=== PATIENT | male | born 1970 | race Caucasian/White ===

== ENCOUNTER 2019-03-26 07:50 | Emergency (ER) | payer BC, SELFPAY ==
[2019-03-26 07:51] VITALS: BP 189/109; PULSE 100; RESP 18; TEMP 36.6; O2SAT 96; BMI 38.0
--- NOTE | 2019-03-26 08:34 | RAD_ITS ---
STUDY: X-RAY CHEST REASON FOR EXAM: Male, 48 years old. Coughing up blood for a week. TECHNIQUE: PA and lateral views. COMPARISON: None. FINDINGS: The lungs are clear and expanded. There is no demonstrated pleural abnormality. Normal size heart. Normal mediastinum and lobo. Normal visualized pulmonary arteries. Normal visualized aortic arch and descending thoracic aorta. Multiple contiguous compression fractures involving T7 down to T11 vertebral bodies are presumably from remote injury. Normal visualized ribs, clavicles, and shoulders. There is no demonstrated abnormality of the visualized soft tissue structures of the upper abdomen. RAD/Chest PA and Lateral IMPRESSION: 1. Normal x-ray examination of the chest. 2. Multiple mild anterior wedge compression fractures involving T7 down to T11 vertebral bodies are presumably from remote injury. Electronically Signed: Facundo Gregg MD at 9:02 EST , Service support ,
[2019-03-26 08:59] VITALS: BP 149/98
--- NOTE | 2019-03-26 09:19 | ED.VIS.GEN ---
History of Present Illness Chief Complaint: Cold Sx Onset: Today Context: Sudden Onset Narrative: Patient is a 48-year-old male with history of hypertension, hyperlipidemia and acid reflux presenting with an episode of hemoptysis. Patient states this morning he was clearing his throat and he coughed up a clot of blood. It was about the size of a nickel. He denies any other bleeding. He notes he did have a nosebleed about 1 week ago when he woke up and felt that there is blood dripping in the back of his throat. He states that resolved spontaneously. He denies any recent upper respiratory symptoms including nasal congestion or ear pain. He states he does have a sore throat. He is on any blood thinners. He denies any trauma. He was concerned that this could be something worse so he came to the emergency room to be evaluated further. He denies any other complaints at this time. Past Medical History - Allergies and Home Meds Allergies/Adverse Reactions: Allergies No Known Allergies Allergy (Verified 03/26/19 07:52) Primary Care Physician: Brijesh Yeager III, MD [Primary Care Provider] - Past Medical History: - - Hypertension, hyperlipidemia, GERD Surgical History: noncontributory Lives: With Family Smoking Status: Former smoker Review of Systems General: Denies: Chills, Fever, Sweats Eyes: Denies: Visual changes - bilaterally, Diplopia ENT: Reports: Sore throat. Denies: Rhinorrhea Cardiovascular: Denies: Chest pain, Palpitations Respiratory: Reports: Cough, Sputum - Bloody. Denies: Dyspnea, Dyspnea on exertion Gastrointestinal: Denies: Abdominal pain, Nausea, Vomiting, Diarrhea, Melena, Hematochezia Genitourinary: Denies: Dysuria, Hematuria, Frequency Musculoskeletal: Denies: Back pain, Extremity Pain Skin: Denies: Rash, Wounds Neurological: Denies: Headache, Weakness, Numbness Physical Exam Vital Signs/Narrative: Vital Signs Temp Pulse Resp BP Pulse Ox 03/26/19 08:59 149/98 H 03/26/19 07:51 98 F 100 18 189/109 H 96 General: Well nourished, Well developed, No Acute Distress Head: Normocephalic, Atraumatic Eyes: Perrl, EOMI ENT: Moist mucous membranes, No rhinorrhea, TM's clear, - - No blood in nares or signs of epistaxis, normal oropharynx with no signs of bleeding Neck: Supple, Nontender Cardiovascular: Regular rate, Regular rhythm, No murmurs Respiratory: No distress, CTA bilaterally, Chest nontender Abdomen: Soft, Nontender, Nondistended, Normal bowel sounds Back: Nontender, Normal Inspection Extremities: Nontender, No edema Skin: Normal color, No rash. Negative for: Pallor Neurological: Alert, Oriented x3, Cranial nerves II-XII grossly intact, Normal Strength, Normal Sensation Psychological: Normal affect, Normal Mood Diagnostic/Tx/Re-eval Chest X-Ray - ED: 2 View, Read by ED Physician, Read by Radiologist, No Acute Disease Clinical Impression(s) from Imaging Studies Chest X-Ray 03/26/19 08:34 IMPRESSION: 1. Normal x-ray examination of the chest. 2. Multiple mild anterior wedge compression fractures involving T7 down to T11 vertebral bodies are presumably from remote injury. Electronically Signed: Facundo Gregg MD at 9:02 EST , Service support , - Medical Decision Making Patient had one episode of hemoptysis. Patient brought in the clot for me to review. It is about the size of a nickel and is very dark and looks like old blood. It is possible that he was coughing of blood from his nosebleed last week. Lung sounds are clear. Patient does not have any rash or petechial lesions. He does not appear anemic. He has normal vital signs. Chest x-ray obtained which does not show any effusion or abnormal mass. Patient does have a remote compression fractures. Patient is stable for outpatient follow-up in my opinion. Patient is counseled that I cannot rule out every cause of hemoptysis but he is stable. He is encouraged to follow-up with his primary care doctor. Patient is PERC negative and I do not suspect PE as a cause. Patient is counseled on signs and symptoms requiring return to the emergency room. Patient verbalizes agreement and understand this plan. Patient discharged home in stable and improved condition. ED Disposition - Plan for ED Patient: Disposition: Home or Assisted Living Diagnosis: Hemoptysis Instructions: Hemoptysis Referrals: Brijesh Yeager III, MD [Primary Care Provider] - Additional Instructions: It is not entirely clear why you coughed up some blood today. I do think you are safe to follow-up with your primary care doctor. Return to emergency room if you have worsening symptoms.
== END 2019-03-26 09:37 | disposition home or self-care (01) ==
PROVIDERS: Emergency Provider Emergency Medicine; Family Provider Family Medicine; PCP Family Medicine
DX: R04.2 Hemoptysis (principal); I10 Essential (primary) hypertension; E78.5 Hyperlipidemia, unspecified; K21.9 Gastro-esophageal reflux disease without esophagitis; Z87.891 Personal history of nicotine dependence; Z79.899 Other long term (current) drug therapy
CPT/HCPCS: 71046; 99282

== ENCOUNTER 2020-11-10 08:38 | Inpatient (IN) | payer BC, SELFPAY ==
[2020-11-10] VITALS (12 sets, daily range): BP systolic 128–161; BP diastolic 75–96; PULSE 83–109; RESP 16–25; TEMP 36.4–37.6; O2SAT 85–94; BMI 36.5; BMI 34.7
--- NOTE | 2020-11-10 09:00 | EKG12_ITS ---
Test Reason : COVID Blood Pressure : / mmHG Vent. Rate : 094 BPM Atrial Rate : 094 BPM P-R Int : 138 ms QRS Dur : 078 ms QT Int : 342 ms P-R-T Axes : 026 -20 017 degrees QTc Int : 427 ms Normal sinus rhythm Minimal voltage criteria for LVH, may be normal variant Borderline ECG Confirmed by TRISTAN JACOBSON, JONNY ([id number]), book editor MARTHA MORTON ([id number]) on 11/12/2020 9:43:38 AM Referred By: BANDAR Confirmed By:JONNY HUDSON MD
--- NOTE | 2020-11-10 09:01 | RAD_ITS ---
STUDY: X-RAY CHEST REASON FOR EXAM: Male, 50 years old. cough TECHNIQUE: 2 portable views COMPARISON: 2018 FINDINGS: The lungs are underexpanded with superimposed interstitial and airspace opacifications without effusions. This pattern of opacification is most consistent with Covid pneumonia, though pneumonitis or CHF could have a similar appearance. There is no demonstrated pleural abnormality. Normal size heart. Normal mediastinum and lobo. Normal visualized pulmonary arteries. Normal visualized aortic arch and descending thoracic aorta. There are diffuse degenerative changes of the visualized thoracic spine. Normal visualized ribs, clavicles, and shoulders. There is no demonstrated abnormality of the visualized soft tissue structures of the upper abdomen. RAD/Chest 1 View (Portable) IMPRESSION: Underexpanded lungs with superimposed airspace and interstitial opacifications. Differential as described above. Follow-up recommended to ensure resolution Electronically Signed: Milton Shaver MD at 9:53 EDT , Service support ,
--- NOTE | 2020-11-10 09:02 | EDS_ITS ---
HPI History of Present Illness Chief Complaint: Cough Informant: patient Onset/Context/Timing Onset: Days Context: Gradual Onset Current Severity: Moderate Maximum Severity: Moderate Narrative Narrative: Patient present secondary to cough and increasing shortness of breath. Patient developed URI symptoms 1 week ago today. Last November 04 he tested positive for Covid. Patient reports increasing cough and shortness of breath. He has had fever at home. He denies vomiting or diarrhea. He did not receive the Covid vaccine. [facility] Medical History Arthritis Former smoker GERD (gastroesophageal reflux disease) High cholesterol Hypertension Home Medications ezetimibe [Zetia] 10 mg PO DAILY 04/11/14 [History Last Taken Unknown] omeprazole 40 mg PO DAILY 04/11/14 [History Last Taken Unknown] atorvastatin 20 mg PO QHS 03/26/19 [History Last Taken Unknown] cholecalciferol (vitamin D3) 1,000 unit PO DAILY 03/26/19 [History Last Taken Unknown] multivitamin 1 tab PO DAILY 11/10/20 [History Last Taken Unknown] Allergy/AdvReac Type Severity Reaction Status Date / Time No Known Allergies Allergy Verified 11/10/20 08:39 Surgical History Hx of arthroscopic knee surgery Social History Smoking Status: Former smoker ROS ROS ED Constitutional Constitutional ED: Denies chills or fever(s) Eyes Eyes: Denies change in vision ENT ENT ED: Denies sore throat Cardiovascular Cardiovascular: Denies chest pain Respiratory/Chest Respiratory/Chest: Reports cough and dyspnea Gastrointestinal Gastrointestinal: Denies abdominal pain, diarrhea, nausea or vomiting Genitourinary Genitourinary ED: Denies dysuria Musculoskeletal Musculoskeletal: Denies back pain Integumentary Denies rash Neurologic Neurologic: Denies headache(s) or weakness Psychiatric Psychiatric: Denies anxiety or depression Endocrine Endocrinology: Denies polydipsia or polyuria Allergic/Immunologic Allergic/Immunologic ED: Denies urticaria EXAM Physical Exam Const Vital Signs: 11/10/20 08:39 11/10/20 08:54 11/10/20 09:41 Temperature 97.6 F L Temperature Source Temporal Pulse Rate 109 H 95 Respiratory Rate 20 H 25 H Respiratory Effort Normal Non-Labored Respiratory Depth Normal Respiratory Pattern Normal Blood Pressure 148/94 H 161/95 H Blood Pressure Mean 112 117 Pulse Ox 91 92 Oxygen Delivery Method Room Air Room Air Nasal Cannula Oxygen Flow Rate (L/min) 2 11/10/20 10:39 11/10/20 10:43 Temperature 98.6 F 98.6 F Temperature Source Oral Oral Pulse Rate 93 Respiratory Rate 16 Respiratory Effort Respiratory Depth Respiratory Pattern Blood Pressure 128/84 H Blood Pressure Mean 98 Pulse Ox 93 Oxygen Delivery Method Nasal Cannula Oxygen Flow Rate (L/min) 2 Positive well nourished and well developed General Appearance ED: well developed HEENT Reports normocephalic and head/scalp atraumatic Eyes PERRL and EOMs intact bilaterally Neck supple Chest Wall inspection of chest normal and palpation of chest normal Resp normal respiratory effort and clear to auscultation bilaterally Cardio regular rate and regular rhythm GI normal to inspection, nondistended, normoactive bowel sounds Palpation: soft Extremity normal to inspection Neuro oriented x3 and no sensory deficits noted Sensorium / Orientation: alert Psych mental status grossly normal Skin no rashes or lesions noted MDM MDM MDM Narrative Medical decision making narrative: When I entered the room to see the patient his O2 sat was 85% on room air. He was placed on 2 L nasal cannula. Labs, EKG, chest x-ray obtained. Lab Data Attestation: I reviewed the patient's lab results. Labs: Laboratory Results - last 24 hr 11/10/20 11/10/20 11/10/20 09:30 09:30 09:30 WBC 7.8 RBC 4.88 Hgb 14.6 Hct 42.9 MCV 87.9 MCH 29.9 MCHC 34.0 RDW Std Deviation 43.4 RDW Coeff of Brenda 13.3 Plt Count 193 MPV 10.1 Immature Gran % (Auto) 0.800 Neut % (Auto) 84.6 H Lymph % (Auto) 10.5 L [place] % (Auto) 3.9 Eos % (Auto) 0.1 Baso % (Auto) 0.1 Absolute Neuts (auto) 6.6 Absolute Lymphs (auto) 0.82 L Nucleated RBC % 0 D-Dimer Quant (PE/DVT) 0.79 H* Sodium Potassium Chloride Carbon Dioxide Anion Gap BUN Creatinine Estim Creat Clear Calc Est GFR (MDRD) Af Amer Est GFR (MDRD) Non-Af BUN/Creatinine Ratio Glucose Lactic Acid Calcium Total Bilirubin AST ALT Alkaline Phosphatase Total Protein Albumin Globulin Albumin/Globulin Ratio Procalcitonin 0.28 H 11/10/20 11/10/20 09:30 09:30 WBC RBC Hgb Hct MCV MCH MCHC RDW Std Deviation RDW Coeff of Brenda Plt Count MPV Immature Gran % (Auto) Neut % (Auto) Lymph % (Auto) [place] % (Auto) Eos % (Auto) Baso % (Auto) Absolute Neuts (auto) Absolute Lymphs (auto) Nucleated RBC % D-Dimer Quant (PE/DVT) Sodium 138 Potassium 3.7 Chloride 106 Carbon Dioxide 25.0 Anion Gap 7 BUN 15 Creatinine 0.85 Estim Creat Clear Calc 100.59 Est GFR (MDRD) Af Amer 122 Est GFR (MDRD) Non-Af 101 BUN/Creatinine Ratio 17.6 Glucose 156 H Lactic Acid 1.2 Calcium 9.0 Total Bilirubin 0.60 AST 74 H ALT 67 H Alkaline Phosphatase 63 Total Protein 6.9 Albumin 3.1 L Globulin 3.8 Albumin/Globulin Ratio 0.8 L Procalcitonin Radiography Chest X-Ray - ED: 1 View, Read by ED Physician, Right Infiltrate and Left Infiltrate Diagnostic Testing: Radiology Impression Chest X-Ray 11/10/20 09:01 IMPRESSION: Underexpanded lungs with superimposed airspace and interstitial opacifications. Differential as described above. Follow-up recommended to ensure resolution Electronically Signed: Milton Shaver MD at 9:53 EDT , Service support , Chest CTA 11/10/20 10:05 IMPRESSION: No demonstrated PE, or thoracic aortic aneurysm or dissection Chronic bronchitis noted along with diffuse interstitial and airspace opacifications in both lung mesa without effusions. This pattern of opacification is most consistent with Covid. No suspicious adenopathy Degenerative bony changes Fatty liver Electronically Signed: Milton Shaver MD at 10:58 EDT , Service support , EKG Initial EKG: Attestation: I personally reviewed and interpreted this EKG as follows: Interpretation: Sinus Rhythm (Sinus at [address] change.) Treatment and Re-Evaluation Comments:: Patient's labs are reviewed. Procalcitonin is slightly elevated. Chest x-ray reveals bilateral infiltrates. D-dimer is elevated. CTA reveals infiltrates consistent with Covid pneumonia but no evidence of PE. On repeat evaluation patient is resting comfortably. He is currently on 2.5 L nasal cannula with sats in the low 90s. He did receive Decadron. I will speak with hospitalist regarding admission. Discharge Plan Triage Chief Complaint: Cough ED Provider: Jacinta Guzman Dx/Rx/DC Orders Clinical Impression: Pneumonia due to COVID-19 virus Prescriptions: No Action omeprazole 40 MG capsule,delayed release(DR/EC) 40 mg PO DAILY RF: 0 ezetimibe [Zetia] 10 MG tablet 10 mg PO DAILY RF: 0 atorvastatin 20 MG tablet 20 mg PO QHS RF: 0 cholecalciferol (vitamin D3) 1,000 UNIT tablet 1,000 unit PO DAILY RF: 0 multivitamin Tablet 1 tab PO DAILY RF: 0 Primary Care Provider: Care Physician,No Primary Referrals: Care Physician,No Primary [Primary Care Provider] - Disposition Disposition: Acute Care Hospital [facility]
[2020-11-10] MEDS: dexAMETHasone 4 MG Tablet 6 MG PO (09:16)
[2020-11-10 09:49] LABS: Absolute Lymphocyte Count 0.82 X10^3/uL (0.83-4.51); Absolute Neutrophil Count 6.6 X10^3/uL (2.0-7.7); Basophil# 0.01 X10^3/uL; Basophil% 0.1 % (0-1); Eosinophil# 0.01 X10^3/uL; Eosinophils% 0.1 % (0-5); Hematocrit 42.9 % (40-54); Hemoglobin 14.6 g/dL (13.0-16.5); Lymphocyte # 0.82 X10^3/ul (0.83-4.51); Lymphocyte % 10.5 % (19-41); Mean Corpuscular Hgb 29.9 pg (27.0-32.0); Mean Corpuscular Volume 87.9 fL (80-94); Mean Platelet Vol. 10.1 fl (6.2-12.0); Monocyte% 3.9 % (0-10); NRBC Flagged by Analyzer 0 % (0-5); Neutrophil # 6.59 X10^3/uL (2.7-7.7); Neutrophil % 84.6 % (47-70); Platelet Count 193 K/mm3 (150-450); RBC Distribution Width CV 13.3 % (11.6-14.6); RBC Distribution Width SD 43.4 fl (35.1-43.9); Red Blood Count 4.88 M/mm3 (4.6-6.2); White Blood Count 7.8 K/mm3 (4.4-11.0)
[2020-11-10 09:59] LABS: D-Dimer Quantitative (DVT/PE) 0.79 FEU/ug/m (0.27-0.49)
--- NOTE | 2020-11-10 10:05 | CT_ITS ---
STUDY: CTA CHEST REASON FOR EXAM: Male, 50 years old. SOB, covid RADIATION DOSAGE (If Supplied By Facility): CTDIvol = ( 12.66 ) mGy, DLP = ( 513.73 ) mGycm TECHNIQUE: The examination was performed with the intravenous administration of IV 100mL Isovue-370. Post-processing of the angiographic images was performed, with multiplanar reformation and 3D reconstruction. Individualized dose optimization techniques were used for this CT. COMPARISON: None. FINDINGS: Normal enhancement of the main pulmonary artery and right and left pulmonary arteries. Normal enhancement of the bilateral peripheral pulmonary arteries. There is no demonstrated pulmonary embolism. Normal thoracic aorta and visualized great vessels. There is no demonstrated aortic dissection. Normal heart and pericardium. Normal mediastinum. Normal hilar regions. There is peribronchial thickening. The lungs are well expanded. Diffuse interstitial and airspace opacifications probably in the periphery of both lung mesa without effusions. This pattern of opacification is most consistent with Covid. Normal pleura. Normal chest wall structures. There are degenerative changes of thoracic spine. Limited cuts through the upper abdomen show fatty infiltration of the liver without a discrete lesion CT/CTA Chest W/WO Contrast IMPRESSION: No demonstrated PE, or thoracic aortic aneurysm or dissection Chronic bronchitis noted along with diffuse interstitial and airspace opacifications in both lung mesa without effusions. This pattern of opacification is most consistent with Covid. No suspicious adenopathy Degenerative bony changes Fatty liver Electronically Signed: Milton Shaver MD at 10:58 EDT , Service support ,
[2020-11-10 10:10] LABS: ALB/GLOB Ratio 0.8 RATIO (0.9-2.4); AST(SGOT) 74 U/L (15-37); Alanine Aminotransfer ALT/SGPT 67 U/L (16-61); Albumin, Serum 3.1 g/dL (3.2-5.0); Alkaline Phosphatase 63 U/L (45-117); Anion Gap 7 (5-15); BUN 15 mg/dL (7-18); BUN/Creat Ratio 17.6 RATIO (10-20); Chloride 106 mmol/L (98-107); Creatinine, Serum 0.85 mg/dL (0.70-1.30); EST Glomerular Filtration Rate 101 mL/min (>60); Est Glom Filt Rate - Afr Amer 122 mL/min (>60); Estimated Creatinine Clearance 100.59 ml/min; Globulin 3.8 g/dL (2.2-4.2); Glucose 156 mg/dL (74-106); Lactic Acid 1.2 mmol/L (0.4-1.9); Potassium 3.7 mmol/L (3.5-5.1); Protein, Total 6.9 g/dL (6.4-8.2); Sodium Level 138 mmol/L (136-145)
[2020-11-10 10:44] LABS: Procalcitonin 0.28 ng/mL (0.00-0.09)
--- NOTE | 2020-11-10 13:47 | PCM.HP.STD ---
HPI - General General Date of Admission: 11/10/20 HPI Narrative MACIE GRIJALVA, is a 50 M who presents to ER with cough and increasing shortness of breath on exertion for 3 days. Patient developed nonspecific symptoms of weakness, sore throat about 1 week ago. Patient had fever at home. Cough is getting more productive with yellow sputum. Denies nausea, vomiting, diarrhea. He did not had Covid vaccine. His 1 daughter also had his fourth. Patient tested positive of Covid on November 04. In ED, his pulse ox dropped to 85% on room air. In chest x-ray and then chest CT PA was done which did not show PE but diffuse interstitial area is opacification groundglass interstitial/viral pneumonia. D-dimer elevated. Try to 70 years mildly elevated. Procalcitonin 0.28. Patient quit about 20 years ago. Started smoking teenage more than a pack per day probably for 30 years [facility] Medical History Arthritis Former smoker GERD (gastroesophageal reflux disease) High cholesterol Hypertension Home Medications ezetimibe [Zetia] 10 mg PO DAILY 04/11/14 [History Last Taken Unknown] omeprazole 40 mg PO DAILY 04/11/14 [History Last Taken Unknown] atorvastatin 20 mg PO QHS 03/26/19 [History Last Taken Unknown] cholecalciferol (vitamin D3) 1,000 unit PO DAILY 03/26/19 [History Last Taken Unknown] multivitamin 1 tab PO DAILY 11/10/20 [History Last Taken Unknown] Allergy/AdvReac Type Severity Reaction Status Date / Time No Known Allergies Allergy Verified 11/10/20 08:39 Surgical History Hx of arthroscopic knee surgery Social History Smoking Status: Former smoker ROS ROS Narrative Constitutional: Reports fatigue and weakness HEENT: Reports systems reviewed and no addt'l complaints, except as documented Respiratory/Chest: Cough, shortness of breath on exertion. No chest pain. Gastrointestinal: Denies coffee ground emesis, hematemesis or vomiting. No loss of taste and smell. Genitourinary: Denies burning urination Musculoskeletal: Reports joint pain and limited range of motion Neurologic: Denies seizure-like activity skin: No ulcer. No rash Endocrinology: Reports systems reviewed and no addt'l complaints, except as documented Hematologic/Lymphatic: Reports systems reviewed and no addt'l complaints, except as documented Rest 12 ROS are negative except as mentioned in HPI Vital Signs Vital Signs Vital Signs: 11/10/20 08:39 11/10/20 08:54 11/10/20 09:41 Temperature 97.6 F L Temperature Source Temporal Pulse Rate 109 H 95 Respiratory Rate 20 H 25 H Respiratory Effort Normal Non-Labored Respiratory Depth Normal Respiratory Pattern Normal Blood Pressure 148/94 H 161/95 H Blood Pressure Mean 112 117 Pulse Ox 91 92 Oxygen Delivery Method Room Air Room Air Nasal Cannula Oxygen Flow Rate (L/min) 2 11/10/20 10:39 11/10/20 10:43 11/10/20 12:00 Temperature 98.6 F 98.6 F 99.1 F Temperature Source Oral Oral Temporal Pulse Rate 93 83 Respiratory Rate 16 19 H Respiratory Effort Respiratory Depth Respiratory Pattern Blood Pressure 128/84 H 140/96 H Blood Pressure Mean 98 110 Pulse Ox 93 93 Oxygen Delivery Method Nasal Cannula Nasal Cannula Oxygen Flow Rate (L/min) 2 2 Weight Weight: 240 lb Body Mass Index (BMI) 36.5 Physical Exam Narrative General: Alert, Oriented x3, Cooperative. BMI 36.5 kg/m? HEENT: Atraumatic, PERRLA, EOMI, Normocephalic Oral: No Gingival or Mucosal Lesions/ Ulcerations Neck: Supple, No JVD, Negative Carotid Bruits Lungs: Air entry diminished in bilateral lung bases. No crepitation/rhonchi. On 2 L of oxygen. Cardiovascular: Regular rate, Regular Rhythm, Normal S1, Normal S2, No murmurs Abdomen: Bowel Sounds Present, Soft, Non Tender, Non-Distended : No renal angle tenderness. No suprapubic tenderness. Extremities: No edema, Capillary Refill Less than 3 Seconds Skin: No rashes, No breakdown Musculoskeletal: No Tenderness to Palpation of Joints or Extremities Neurological: Cranial nerves II-XII grossly intact, Deep Tendon Reflexes 2+/4 and Symmetrical, Neuro grossly intact Psych/Mental Status: Normal Affect, Appropriate. Results Lab / Micro Data Result Diagrams: 11/10/20 09:30 11/10/20 09:30 Labs: Laboratory Results - last 24 hr 11/10/20 09:30: D-Dimer Quant (PE/DVT) 0.79 H* 11/10/20 09:30: Procalcitonin 0.28 H 11/10/20 09:30: WBC 7.8, RBC 4.88, Hgb 14.6, Hct 42.9, MCV 87.9, MCH 29.9, MCHC 34.0, RDW Std Deviation 43.4, RDW Coeff of Brenda 13.3, Plt Count 193, MPV 10.1, Immature Gran % (Auto) 0.800, Neut % (Auto) 84.6 H, Lymph % (Auto) 10.5 L, [place] % (Auto) 3.9, Eos % (Auto) 0.1, Baso % (Auto) 0.1, Absolute Neuts (auto) 6.6, Absolute Lymphs (auto) 0.82 L, Nucleated RBC % 0 11/10/20 09:30: Sodium 138, Potassium 3.7, Chloride 106, Carbon Dioxide 25.0, Anion Gap 7, BUN 15, Creatinine 0.85, Estim Creat Clear Calc 100.59, Est GFR (MDRD) Af Amer 122, Est GFR (MDRD) Non-Af 101, BUN/Creatinine Ratio 17.6, Glucose 156 H, Calcium 9.0, Total Bilirubin 0.60, AST 74 H, ALT 67 H, Alkaline Phosphatase 63, Total Protein 6.9, Albumin 3.1 L, Globulin 3.8, Albumin/Globulin Ratio 0.8 L 11/10/20 09:30: Lactic Acid 1.2 Radiology Impression Chest X-Ray 11/10/20 09:01 IMPRESSION: Underexpanded lungs with superimposed airspace and interstitial opacifications. Differential as described above. Follow-up recommended to ensure resolution Electronically Signed: Milton Shaver MD at 9:53 EDT , Service support , Chest CTA 11/10/20 10:05 IMPRESSION: No demonstrated PE, or thoracic aortic aneurysm or dissection Chronic bronchitis noted along with diffuse interstitial and airspace opacifications in both lung mesa without effusions. This pattern of opacification is most consistent with Covid. No suspicious adenopathy Degenerative bony changes Fatty liver Electronically Signed: Milton Shaver MD at 10:58 EDT , Service support , Assessment & Plan Assessment/Plan (1) Pneumonia due to COVID-19 virus: PLAN: This 50-year-old patient will be admitted for bilateral COVID-19 pneumonia. 1. Acute bilateral COVID-19 pneumonia of moderate severity: Patient is being admitted in PCU on monitored bed. IV Decadron and remdesivir as per protocol. Incentive spirometry currently, Pep and mucolytic. Monitor pulse ox, and respiratory rate. 2. Acute hypoxic respiratory failure secondary to bilateral COVID-19 pneumonia: Oxygen support to keep pulse ox more than 90% 3. Pretension: Blood pressure is controlled. 4. Dyslipidemia: Home medication resumed 5. GERD: On PPI VTE prophylaxis: Lovenox 30 mg subcu twice daily. Discontinue if platelet count drops less than 50,000 or hemoglobin less than 8 g%. Living will/advanced directive/end of life care: Patient does not have living will or advanced directive. After discussion of benefits/risks procedures involved with full code, DNR CC arrest and DNR CC, the patient opted for full code and negative for intubation if needed. Patient does not artificial life support including intubation, tube feed, ventilator and/chest compression, central venous catheter, vasopressor and DC shock if needed Total time spent in [id number] encounter in discussion of advanced directive 16 minutes. Charges/Coding Visit Charges Inpatient E&M: 06565 Init Hosp L3 Procedures Hospitalists Procedures: 39875 Advncd Care Plan 30 Min
[2020-11-10 16:12] LABS: CPK Total, Creatine Kinase 718 U/L (39-308); LDH 614 U/L (87-241); Troponin-I HS 12.1 pg/mL (3.0-78.5)
[2020-11-10 16:17] LABS: BNP,B-Type NATRIURETIC PEPTIDE 5.7 pg/mL (0-100)
[2020-11-10 16:26] LABS: Fibrinogen 750 mg/dl (203-444)
[2020-11-10] MEDS: Enoxaparin 30 MG/0.3 ML Syringe SC ×2 (18:19→20:33)
[2020-11-10] MEDS: 0.9% Saline Lock 10 ML Syringe IV (18:25)
[2020-11-10] MEDS: Atorvastatin Calcium 20 MG Tablet PO (20:33)
[2020-11-11 03:17] VITALS: BP 130/88; PULSE 85; RESP 18; TEMP 37.3; O2SAT 91
[2020-11-11 05:15] VITALS: BP 128/80; PULSE 84; RESP 18; TEMP 37; O2SAT 92
[2020-11-11 06:25] LABS: Absolute Lymphocyte Count 0.99 X10^3/uL (0.83-4.51); Absolute Neutrophil Count 5.4 X10^3/uL (2.0-7.7); Basophil# 0.03 X10^3/uL; Basophil% 0.4 % (0-1); Hemoglobin 14.7 g/dL (13.0-16.5); Lymphocyte # 0.99 X10^3/ul (0.83-4.51); Lymphocyte % 13.9 % (19-41); Mean Corp Hgb Conc 34.2 g/dL (32-36); Mean Corpuscular Hgb 30.2 pg (27.0-32.0); Mean Corpuscular Volume 88.5 fL (80-94); Mean Platelet Vol. 9.9 fl (6.2-12.0); Monocyte# 0.59 X10^3/uL; Monocyte% 8.3 % (0-10); NRBC Flagged by Analyzer 0 % (0-5); Neutrophil # 5.41 X10^3/uL (2.7-7.7); Neutrophil % 75.7 % (47-70); Platelet Count 250 K/mm3 (150-450); RBC Distribution Width CV 13.2 % (11.6-14.6); Red Blood Count 4.86 M/mm3 (4.6-6.2); White Blood Count 7.1 K/mm3 (4.4-11.0)
[2020-11-11 06:54] LABS: Magnesium 2.2 mg/dL (1.6-2.6)
[2020-11-11 10:00] VITALS: BP 159/103; PULSE 87; RESP 18; TEMP 36.8; O2SAT 92
[2020-11-11] MEDS: Enoxaparin 30 MG/0.3 ML Syringe SC ×2 (10:29→21:21)
[2020-11-11] MEDS: Ezetimibe 10 MG Tablet PO (10:30)
[2020-11-11] MEDS: Pantoprazole Sodium 40 MG Tablet PO (10:30)
[2020-11-11] MEDS: dexAMETHasone 10 MG/ML Vial 6 MG IV (10:30)
[2020-11-11] MEDS: Cholecalciferol (VIT D3) 25 MCG TABLET (1,000 UNITS) PO (10:30)
[2020-11-11] MEDS: Multivitamins,Therapeutic Tablet 1 TABLET PO (10:30)
--- NOTE | 2020-11-11 10:52 | PCM.PN.HOSP ---
Subjective Subjective Patient is a 50-year-old gentleman unvaccinated for COVID-19 presented to the emergency department with progressive shortness of breath. He had apparently been diagnosed with Covid 6 days prior to his admission. Imaging studies obtained on admission demonstrated Chronic bronchitis noted along with diffuse interstitial and airspaceopacifications in both lung mesa without effusions consistent with Covid. Objective Data Objective Data Vital Signs: Vital Signs Temp Pulse Resp BP Pulse Ox 98.3 F 87 18 159/103 H 92 11/11/20 10:00 11/11/20 10:00 11/11/20 10:00 11/11/20 10:00 11/11/20 05:15 Oxygen Flow Rate (L/min) 5 Oxygen Delivery Method Nasal Cannula Weight: 103.419 kg Body Mass Index (BMI) 34.7 Intake & Output: Intake and Output for Last 24 Hours 11/09/20 11/10/20 11/11/20 23:59 23:59 23:59 Intake Total 920 / 1160 480 / 480 Balance 920 / 1160 480 / 480 Lab / Micro Data Result Diagrams: 11/11/20 05:53 11/10/20 09:30 Labs: Laboratory Results - last 24 hr 11/10/20 14:17: B-Natriuretic Peptide 5.7 11/10/20 15:49: PT 13.0, INR 1.0, Fibrinogen 750 H 11/10/20 15:49: Lactate Dehydrogenase 614 H, Total Creatine Kinase 718 H, Troponin I High Sens 12.1, C-React Prot Ext Range 153.00 H 11/11/20 05:53: WBC 7.1, RBC 4.86, Hgb 14.7, Hct 43.0, MCV 88.5, MCH 30.2, MCHC 34.2, RDW Std Deviation 43.0, RDW Coeff of Brenda 13.2, Plt Count 250, MPV 9.9, Immature Gran % (Auto) 1.700 H, Neut % (Auto) 75.7 H, Lymph % (Auto) 13.9 L, [place] % (Auto) 8.3, Eos % (Auto) 0.0, Baso % (Auto) 0.4, Absolute Neuts (auto) 5.4, Absolute Lymphs (auto) 0.99, Nucleated RBC % 0 11/11/20 05:53: Magnesium 2.2 Micro: Microbiology 11/10/20 21:32 Sputum, Expectorated/Coughed Gram Stain - Final 11/10/20 21:32 Sputum, Expectorated/Coughed Respiratory Culture - Preliminary Appears to be normal respiratory citlali. Further studies to follow. 11/10/20 15:50 Urine, Clean Catch Legionella Antigen - Final 11/10/20 15:50 Urine, Clean Catch Streptococcus pneumoniae Antigen (M - Final Radiography Diagnostic Testing: Radiology Impression Chest CTA 11/10/20 10:05 IMPRESSION: No demonstrated PE, or thoracic aortic aneurysm or dissection Chronic bronchitis noted along with diffuse interstitial and airspace opacifications in both lung mesa without effusions. This pattern of opacification is most consistent with Covid. No suspicious adenopathy Degenerative bony changes Fatty liver Electronically Signed: Milton Shaver MD at 10:58 EDT , Service support , Physical Exam Narrative GENERAL: Somewhat dyspneic at rest HEENT: Atraumatic; EYES; Anicteric, Normal Conjunctiva NECK; supple, normal thyroid, RESPIRATORY: Diminished to auscultation CARDIOVASCULAR: Regular S1 S2, GI: soft, normoactive bowel sounds, : No Renal angle tenderness; EXTREMITIES: No edema, no clubbing, MUSCULOSKELETAL: no muscle waisting NEURO: Awake; no lateralizing signs. SKIN: No Rash PSYCH; Flat affect Assessment & Plan Assessment/Plan (1) Pneumonia due to COVID-19 virus: PLAN: Patient is a 50-year-old gentleman unvaccinated for COVID-19 presented to the emergency department with progressive shortness of breath. He had apparently been diagnosed with Covid 6 days prior to his admission. Imaging studies obtained on admission demonstrated Chronic bronchitis noted along with diffuse interstitial and airspaceopacifications in both lung mesa without effusions consistent with Covid. 1. Acute hypoxic respiratory failure ?Secondary to SARS-CoV-2 pneumonia. Imaging studies obtained on admission demonstrated Chronic bronchitis noted along with diffuse interstitial and airspace opacifications in both lung mesa without effusions consistent with Covid. Admitted to a monitored bed managed with incentive spirometry, supplemental oxygen, placed on Decadron remdesivir. Patient seen remains significantly dyspneic at rest on supplemental oxygen 2. GERD ?Patient is on PPI 3. Gout ?Patient is on allopurinol 4. Dyslipidemia -Patient is on statin therapy, continued at home dose 5. Obesity with BMI of 34.7 ?Weight loss advised 6. DVT prophylaxis ?Enoxaparin Charges/Coding Visit Charges Inpatient E&M: 16262 Subs Hosp L3
--- NOTE | 2020-11-11 13:15 | CASEMGMT ---
RN RICHARD assessment: Face to Face with patient using enhanced droplet precautions for initial transition planning/care coordination assessment. RN CM introduced self and role at [facility], pt voices understanding and consents to assessment. Pt is up pacing in room with c/o shortness of breath, states pushed nurse call button. Pt very anxious. This RN CM placed pulse ox on and pt's sats were 90-92% on 5L nc. Pt did calm down once sitting and Jadiel LOPEZ notified as soon as this RN CM left room and Dr. España also into room as this RN CM exited. Pt sitting on side of bed during assessment. Pt is A/Ox4 and answers all questions appropriately. Care providers, pharmacy, and demographics verified. Presentation: Pt c/o cough/SOB and states tested positive for COVID last Wednesday-Pt states was tested at [facility] urgent care Admitting dx: COVID pna PCP: Pt states was with Dr. Yeager previously and has not seen a new physician at [facility] since he retired. Specialists: Pt states no current specialists. Preferred Pharmacy: [facility] Insurance: [employer] Prescription Benefit: [place] Living Will/HPOA: Pt states does not have LW/HPOA and declines AD info. LNOK: Shirley Serrano, adult daughter; Elizabeth Serrano, mother Living Arrangements: Pt states lives with daughter in home and states no concerns at home. Pt states is independent with ADL's. Pt states daughter was just tested for COVID but does not have result yet. Pt states no concerns with getting supplies once home. Transportation: Pt states drives self and states no transportation concerns. DME/HHC: Pt states does not have any current DME or need for any. Pt states no hx of HHC or SNF. Pt states no preference for DME company, if qualifies for home oxygen at discharge. Pt states no concerns with going home at time of discharge. 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 Pt states does not smoke cigarettes or drink ETOH. Pt states no further concerns/needs. CM to follow for home oxygen need or any further discharge planning/needs. Advised pt to ask for CM if any further questions/concerns/needs arise, voices understanding. Pt Goal: Home Plan: Home, pending home oxygen testing, clinical course. SStaten JESSICA RAMOS
--- NOTE | 2020-11-11 13:54 | PCM.CONS.GEN ---
Assessment & Plan Assessment/Plan (1) Pneumonia due to COVID-19 virus: PLAN: Sx started 11/02. Unvaccinated. On remdesivir, will order daily cmp/cbc. On dex, will change to po. Sputum with heavy purulence and GPC, will start ceftriaxone. On lovenox 30mg bid, CTA neg for PE. D-dimer mildly elevated. Recommend 10 days total dex. Quarantine days from onset of symptoms. Recommended covid vaccine once he is out of iso. Daughter also likely with covid, she is getting tested. Will follow, thank you (2) Hypoxia: HPI Consult Data Date of Consult: 11/11/20 HPI Narrative HPI Narrative: MACIE GRIJALVA, is a 50 M who presented with sx starting 11/02 with sore throat, congestion. Developed progressive cough, dysypnea, white/yellow sputum. No aches, no headache, no fatigue, no change in taste/smell, no n/v/d. Has not gotten covid vaccine. Tested (+) as an outpt for covid. Daughter this AM with loss of taste and smell. He was admitted, started on dex and remdesivir, feeling better today. Full ROS performed and neg except as noted above. [facility] Medical History Arthritis Former smoker GERD (gastroesophageal reflux disease) High cholesterol Hypertension Home Medications ezetimibe [Zetia] 10 mg PO DAILY 04/11/14 [History Last Taken 11/09/20] omeprazole 40 mg PO DAILY 04/11/14 [History Last Taken 11/09/20] atorvastatin 20 mg PO QHS 03/26/19 [History Last Taken 11/09/20] cholecalciferol (vitamin D3) 1,000 unit PO DAILY 03/26/19 [History Last Taken 11/09/20] allopurinol [Zyloprim] 100 mg PO DAILY 11/10/20 [History Last Taken 11/09/20] multivitamin 1 tab PO DAILY 11/10/20 [History Last Taken 11/09/20] Allergy/AdvReac Type Severity Reaction Status Date / Time No Known Allergies Allergy Verified 11/10/20 08:39 Surgical History Hx of arthroscopic knee surgery Social History Smoking Status: Former smoker Physical Exam Const alert and oriented x3 General Appearance: cooperative Exam Limitations: no limitations HEENT normocephalic and head/scalp atraumatic Eyes PERRL and EOMs intact bilaterally Neck supple and No nodes Resp Resp Narrative: diminished in bases Auscultation: diminished lung sounds Cardio regular rate and regular rhythm GI normal to inspection, nondistended, normoactive bowel sounds Extremity no clubbing, cyanosis or edema Skin no rashes or lesions noted Neuro CN's II-XII intact bilaterally Lab / Micro Data Result Diagrams: 11/11/20 05:53 11/10/20 09:30 Labs: Laboratory Results - last 24 hr 11/10/20 14:17: B-Natriuretic Peptide 5.7 11/10/20 15:49: PT 13.0, INR 1.0, Fibrinogen 750 H 11/10/20 15:49: Lactate Dehydrogenase 614 H, Total Creatine Kinase 718 H, Troponin I High Sens 12.1, C-React Prot Ext Range 153.00 H 11/11/20 05:53: WBC 7.1, RBC 4.86, Hgb 14.7, Hct 43.0, MCV 88.5, MCH 30.2, MCHC 34.2, RDW Std Deviation 43.0, RDW Coeff of Brenda 13.2, Plt Count 250, MPV 9.9, Immature Gran % (Auto) 1.700 H, Neut % (Auto) 75.7 H, Lymph % (Auto) 13.9 L, [place] % (Auto) 8.3, Eos % (Auto) 0.0, Baso % (Auto) 0.4, Absolute Neuts (auto) 5.4, Absolute Lymphs (auto) 0.99, Nucleated RBC % 0 11/11/20 05:53: Magnesium 2.2 Micro: Microbiology 11/10/20 21:32 Sputum, Expectorated/Coughed Gram Stain - Final 11/10/20 21:32 Sputum, Expectorated/Coughed Respiratory Culture - Preliminary Appears to be normal respiratory citlali. Further studies to follow. 11/10/20 15:50 Urine, Clean Catch Legionella Antigen - Final 11/10/20 15:50 Urine, Clean Catch Streptococcus pneumoniae Antigen (M - Final
[2020-11-11 16:00] VITALS: BP 127/80; PULSE 83; RESP 18; TEMP 36.4; O2SAT 95
[2020-11-11 17:50] VITALS: O2SAT 91
[2020-11-11] MEDS: Atorvastatin Calcium 20 MG Tablet PO (21:21)
[2020-11-11 21:28] VITALS: BP 137/82; PULSE 74; RESP 20; TEMP 36.6; O2SAT 93
[2020-11-12 02:45] VITALS: BP 137/87; PULSE 71; RESP 20; TEMP 36.7; O2SAT 92
[2020-11-12 06:25] LABS: Hematocrit 43.8 % (40-54); Hemoglobin 14.8 g/dL (13.0-16.5); Mean Corp Hgb Conc 33.8 g/dL (32-36); Mean Corpuscular Hgb 29.8 pg (27.0-32.0); Mean Corpuscular Volume 88.1 fL (80-94); Mean Platelet Vol. 9.5 fl (6.2-12.0); Platelet Count 319 K/mm3 (150-450); RBC Distribution Width CV 13.2 % (11.6-14.6); RBC Distribution Width SD 42.5 fl (35.1-43.9); Red Blood Count 4.97 M/mm3 (4.6-6.2); White Blood Count 9.1 K/mm3 (4.4-11.0)
[2020-11-12 06:57] LABS: ALB/GLOB Ratio 0.8 RATIO (0.9-2.4); AST(SGOT) 65 U/L (15-37); Alanine Aminotransfer ALT/SGPT 85 U/L (16-61); Albumin, Serum 2.9 g/dL (3.2-5.0); Alkaline Phosphatase 65 U/L (45-117); Anion Gap 5 (5-15); BUN 19 mg/dL (7-18); BUN/Creat Ratio 25.6 RATIO (10-20); Chloride 109 mmol/L (98-107); Creatinine, Serum 0.74 mg/dL (0.70-1.30); EST Glomerular Filtration Rate 118 mL/min (>60); Est Glom Filt Rate - Afr Amer 143 mL/min (>60); Estimated Creatinine Clearance 115.54 ml/min; Globulin 3.6 g/dL (2.2-4.2); Glucose 126 mg/dL (74-106); Potassium 4.2 mmol/L (3.5-5.1); Protein, Total 6.5 g/dL (6.4-8.2); Sodium Level 141 mmol/L (136-145)
[2020-11-12 07:20] VITALS: O2SAT 92
[2020-11-12 09:52] VITALS: BP 133/78; PULSE 81; RESP 20; TEMP 36.6; O2SAT 92
[2020-11-12] MEDS: Ezetimibe 10 MG Tablet PO (09:54)
[2020-11-12] MEDS: dexAMETHasone 4 MG Tablet 6 MG PO (09:54)
[2020-11-12] MEDS: Enoxaparin 30 MG/0.3 ML Syringe SC ×2 (09:54→22:34)
[2020-11-12] MEDS: Pantoprazole Sodium 40 MG Tablet PO (09:54)
[2020-11-12] MEDS: Multivitamins,Therapeutic Tablet 1 TABLET PO (09:54)
[2020-11-12] MEDS: 0.9% Saline Lock 10 ML Syringe IV ×2 (09:55→14:00)
[2020-11-12] MEDS: Cholecalciferol (VIT D3) 25 MCG TABLET (1,000 UNITS) PO (09:55)
--- NOTE | 2020-11-12 10:53 | PCM.PN.HOSP ---
Subjective Subjective Patient seen still requiring high flow oxygen currently on 6 L and saturating in the low 90s. Objective Data Objective Data Vital Signs: Vital Signs Temp Pulse Resp BP Pulse Ox 97.9 F 81 20 H 133/78 H 92 11/12/20 09:52 11/12/20 09:52 11/12/20 09:52 11/12/20 09:52 11/12/20 09:52 Oxygen Flow Rate (L/min) 6 Oxygen Delivery Method Nasal Cannula Weight: 103.4 kg Body Mass Index (BMI) 34.7 Intake & Output: Intake and Output for Last 24 Hours 11/10/20 11/11/20 11/12/20 23:59 23:59 23:59 Intake Total 920 / 1160 1180 / 1180 150 / 150 Balance 920 / 1160 1180 / 1180 150 / 150 Medical Nutrition Assessment Dietitian: Nutrition Therapy Diagnosis Start: 11/11/20 10:00 Freq: Status: Active Protocol: Document 11/11/20 15:04 RMA (Rec: 11/11/20 15:04 RMA [id number]) Nutrition Malnutrition Evidence of Malnutrition Exists Yes Malnutrition (severe): Acute Illness/Injury Evidenced By Suboptimal Energy Intake ( Severe),Weight Loss (Severe) Clinical Problem Acute Disease or Injury Related Malnutrition Etiology Severe protein-calorie malnutrition in the context of acute illness (Covid pneumonia) related to decreased/inadequate oral intake Signs/Symptoms as evidenced by ~5% wt loss x past 1-2 weeks, poor oral intake and PO meeting less than 50% estimated nutrition needs x past 1-2 weeks. Status Active Problem Recommendation Dietitian Recommendations/Changes Will continue Regular diet as ordered; monitor need to restrict carbs given glucose 156; Cardiac diet restrictions as needed once intake improved given past medical history. Will add 120ml vanilla ensure enlive BID w/ breakfast and dinner and 240ml van ensure enlive w/ lunch (700 calories and 40gm protein). Additional ONS if intake established inadequate at meals. Lab / Micro Data Result Diagrams: 11/12/20 06:15 11/12/20 06:15 Labs: Laboratory Results - last 24 hr 11/12/20 06:15: WBC 9.1, RBC 4.97, Hgb 14.8, Hct 43.8, MCV 88.1, MCH 29.8, MCHC 33.8, RDW Std Deviation 42.5, RDW Coeff of Brenda 13.2, Plt Count 319, MPV 9.5 11/12/20 06:15: Sodium 141, Potassium 4.2, Chloride 109 H, Carbon Dioxide 27.0, Anion Gap 5, BUN 19 H, Creatinine 0.74, Estim Creat Clear Calc 115.54, Est GFR (MDRD) Af Amer 143, Est GFR (MDRD) Non-Af 118, BUN/Creatinine Ratio 25.6 H, Glucose 126 H, Calcium 9.0, Total Bilirubin 0.70, AST 65 H, ALT 85 H, Alkaline Phosphatase 65, Total Protein 6.5, Albumin 2.9 L, Globulin 3.6, Albumin/Globulin Ratio 0.8 L Micro: Microbiology 11/10/20 09:30 Blood Culture (Wb) - Right Wrist Blood Culture - Preliminary No growth in 48 hours. 11/10/20 09:30 Blood Culture (Wb) - Left Hand Blood Culture - Preliminary No growth in 48 hours. 11/10/20 21:32 Sputum, Expectorated/Coughed Gram Stain - Final 11/10/20 21:32 Sputum, Expectorated/Coughed Respiratory Culture - Preliminary Appears to be normal respiratory citlali. Further studies to follow. 11/10/20 15:50 Urine, Clean Catch Legionella Antigen - Final 11/10/20 15:50 Urine, Clean Catch Streptococcus pneumoniae Antigen (M - Final Physical Exam Narrative GENERAL: Somewhat dyspneic at rest HEENT: Atraumatic; EYES; Anicteric, Normal Conjunctiva NECK; supple, normal thyroid, RESPIRATORY: Diminished to auscultation CARDIOVASCULAR: Regular S1 S2, GI: soft, normoactive bowel sounds, : No Renal angle tenderness; EXTREMITIES: No edema, no clubbing, MUSCULOSKELETAL: no muscle waisting NEURO: Awake; no lateralizing signs. SKIN: No Rash PSYCH; Flat affect Assessment & Plan Assessment/Plan (1) Pneumonia due to COVID-19 virus: PLAN: Patient is a 50-year-old gentleman unvaccinated for COVID-19 presented to the emergency department with progressive shortness of breath. He had apparently been diagnosed with Covid 6 days prior to his admission. Imaging studies obtained on admission demonstrated Chronic bronchitis noted along with diffuse interstitial and airspaceopacifications in both lung mesa without effusions consistent with Covid. 1. Acute hypoxic respiratory failure ?Secondary to SARS-CoV-2 pneumonia. Imaging studies obtained on admission demonstrated Chronic bronchitis noted along with diffuse interstitial and airspace opacifications in both lung mesa without effusions consistent with Covid. Admitted to a monitored bed managed with incentive spirometry, supplemental oxygen, placed on Decadron remdesivir. Patient seen remains significantly dyspneic at rest on supplemental oxygen -11/12/2020; Patient seen still requiring high flow oxygen currently on 6 L and saturating in the low 90s. 2. GERD ?Patient is on PPI 3. Gout ?Patient is on allopurinol 4. Dyslipidemia -Patient is on statin therapy, continued at home dose 5. Obesity with BMI of 34.7 ?Weight loss advised 6. DVT prophylaxis ?Enoxaparin Charges/Coding Visit Charges Inpatient E&M: 07155 Subs Hosp L2
[2020-11-12 14:02] VITALS: BP 138/76; PULSE 73; RESP 20; TEMP 36.8; O2SAT 92
[2020-11-12 18:45] VITALS: BP 118/75; PULSE 72; RESP 20; TEMP 36.8; O2SAT 96
[2020-11-12] MEDS: guaiFENesin/Codeine 5 ML UDC 10 ML PO (18:48)
[2020-11-12] MEDS: Hydrocortisone 25 MG Suppository RC (18:48)
[2020-11-12] MEDS: Atorvastatin Calcium 20 MG Tablet PO (22:34)
[2020-11-12 22:45] VITALS: BP 132/82; PULSE 74; RESP 18; TEMP 36.5; O2SAT 96
[2020-11-13] VITALS (7 sets, daily range): BP systolic 118–156; BP diastolic 56–92; PULSE 71–81; RESP 16–18; TEMP 36.2–36.8; O2SAT 92–94
[2020-11-13] MEDS: guaiFENesin/Codeine 5 ML UDC 10 ML PO (05:42)
[2020-11-13 06:48] LABS: Hematocrit 44.5 % (40-54); Hemoglobin 14.8 g/dL (13.0-16.5); Mean Corp Hgb Conc 33.3 g/dL (32-36); Mean Corpuscular Hgb 29.7 pg (27.0-32.0); Mean Corpuscular Volume 89.2 fL (80-94); Mean Platelet Vol. 9.2 fl (6.2-12.0); Platelet Count 369 K/mm3 (150-450); RBC Distribution Width SD 42.5 fl (35.1-43.9); Red Blood Count 4.99 M/mm3 (4.6-6.2); White Blood Count 11.9 K/mm3 (4.4-11.0)
[2020-11-13 07:16] LABS: ALB/GLOB Ratio 0.8 RATIO (0.9-2.4); AST(SGOT) 70 U/L (15-37); Alanine Aminotransfer ALT/SGPT 117 U/L (16-61); Albumin, Serum 2.9 g/dL (3.2-5.0); Alkaline Phosphatase 70 U/L (45-117); Anion Gap 6 (5-15); BUN 22 mg/dL (7-18); BUN/Creat Ratio 31.2 RATIO (10-20); Calcium,Total 8.8 mg/dL (8.5-10.1); Chloride 108 mmol/L (98-107); EST Glomerular Filtration Rate 126 mL/min (>60); Est Glom Filt Rate - Afr Amer 152 mL/min (>60); Estimated Creatinine Clearance 122.14 ml/min; Globulin 3.8 g/dL (2.2-4.2); Glucose 118 mg/dL (74-106); Potassium 4.2 mmol/L (3.5-5.1); Protein, Total 6.7 g/dL (6.4-8.2); Sodium Level 141 mmol/L (136-145)
--- NOTE | 2020-11-13 08:01 | PN.HOSP_ITS ---
Subjective Subjective Patient seen describe his condition is stable plan is to attempt to wean down his oxygen requirement Objective Data Objective Data Vital Signs: Vital Signs Temp Pulse Resp BP Pulse Ox 98.2 F 76 18 138/82 H 94 11/13/20 05:31 11/13/20 05:31 11/13/20 05:31 11/13/20 05:31 11/13/20 05:31 Oxygen Flow Rate (L/min) 4 Oxygen Delivery Method Nasal Cannula Weight: 103.4 kg Body Mass Index (BMI) 34.7 Intake & Output: Intake and Output for Last 24 Hours 11/11/20 11/12/20 11/13/20 23:59 23:59 23:59 Intake Total 1180 / 1180 880 / 880 Balance 1180 / 1180 880 / 880 Medical Nutrition Assessment Dietitian: Nutrition Therapy Diagnosis Start: 11/11/20 10:00 Freq: Status: Active Protocol: Document 11/11/20 15:04 RMA (Rec: 11/11/20 15:04 RMA [id number]) Nutrition Malnutrition Evidence of Malnutrition Exists Yes Malnutrition (severe): Acute Illness/Injury Evidenced By Suboptimal Energy Intake ( Severe),Weight Loss (Severe) Clinical Problem Acute Disease or Injury Related Malnutrition Etiology Severe protein-calorie malnutrition in the context of acute illness (Covid pneumonia) related to decreased/inadequate oral intake Signs/Symptoms as evidenced by ~5% wt loss x past 1-2 weeks, poor oral intake and PO meeting less than 50% estimated nutrition needs x past 1-2 weeks. Status Active Problem Recommendation Dietitian Recommendations/Changes Will continue Regular diet as ordered; monitor need to restrict carbs given glucose 156; Cardiac diet restrictions as needed once intake improved given past medical history. Will add 120ml vanilla ensure enlive BID w/ breakfast and dinner and 240ml van ensure enlive w/ lunch (700 calories and 40gm protein). Additional ONS if intake established inadequate at meals. Lab / Micro Data Result Diagrams: 11/13/20 06:35 11/13/20 06:35 Labs: Laboratory Results - last 24 hr 11/13/20 06:35: WBC 11.9 H, RBC 4.99, Hgb 14.8, Hct 44.5, MCV 89.2, MCH 29.7, MCHC 33.3, RDW Std Deviation 42.5, RDW Coeff of Brenda 13.0, Plt Count 369, MPV 9.2 11/13/20 06:35: Sodium 141, Potassium 4.2, Chloride 108 H, Carbon Dioxide 27.0, Anion Gap 6, BUN 22 H, Creatinine 0.70, Estim Creat Clear Calc 122.14, Est GFR (MDRD) Af Amer 152, Est GFR (MDRD) Non-Af 126, BUN/Creatinine Ratio 31.2 H, Glucose 118 H, Calcium 8.8, Total Bilirubin 0.70, AST 70 H, ALT 117 H, Alkaline Phosphatase 70, Total Protein 6.7, Albumin 2.9 L, Globulin 3.8, Albumin/Globulin Ratio 0.8 L Micro: Microbiology 11/10/20 09:30 Blood Culture (Wb) - Right Wrist Blood Culture - Preliminary No growth in 48 hours. 11/10/20 09:30 Blood Culture (Wb) - Left Hand Blood Culture - Preliminary No growth in 48 hours. 11/10/20 21:32 Sputum, Expectorated/Coughed Gram Stain - Final 11/10/20 21:32 Sputum, Expectorated/Coughed Respiratory Culture - Preliminary Appears to be normal respiratory citlali. Further studies to follow. 11/10/20 15:50 Urine, Clean Catch Legionella Antigen - Final 11/10/20 15:50 Urine, Clean Catch Streptococcus pneumoniae Antigen (M - Final Physical Exam Narrative GENERAL: Cooperative HEENT: Atraumatic; EYES; Anicteric, Normal Conjunctiva NECK; supple, normal thyroid, RESPIRATORY: Diminished to auscultation CARDIOVASCULAR: Regular S1 S2, GI: soft, normoactive bowel sounds, : No Renal angle tenderness; EXTREMITIES: No edema, no clubbing, MUSCULOSKELETAL: no muscle waisting NEURO: Awake; no lateralizing signs. SKIN: No Rash PSYCH; Flat affect Assessment & Plan Assessment/Plan (1) Pneumonia due to COVID-19 virus: PLAN: Patient is a 50-year-old gentleman unvaccinated for COVID-19 presented to the emergency department with progressive shortness of breath. He had apparently been diagnosed with Covid 6 days prior to his admission. Imaging studies obtained on admission demonstrated Chronic bronchitis noted along with diffuse interstitial and airspaceopacifications in both lung mesa without effusions consistent with Covid. 1. Acute hypoxic respiratory failure ?Secondary to SARS-CoV-2 pneumonia. Imaging studies obtained on admission demonstrated Chronic bronchitis noted along with diffuse interstitial and airspace opacifications in both lung mesa without effusions consistent with Covid. Admitted to a monitored bed managed with incentive spirometry, supplemental oxygen, placed on Decadron remdesivir. Patient seen remains significantly dyspneic at rest on supplemental oxygen -11/12/2020; Patient seen still requiring high flow oxygen currently on 6 L and saturating in the low 90s. -11/13/2020. Patient still remains somewhat dyspneic at rest. Plan is to att empt to wean down his oxygen requirement. 2. GERD ?Patient is on PPI 3. Gout ?Patient is on allopurinol 4. Dyslipidemia -Patient is on statin therapy, continued at home dose 5. Obesity with BMI of 34.7 ?Weight loss advised 6. DVT prophylaxis ?Enoxaparin Charges/Coding Visit Charges Inpatient E&M: 51382 Subs Hosp L2
[2020-11-13] MEDS: dexAMETHasone 4 MG Tablet 6 MG PO (09:38)
[2020-11-13] MEDS: Ezetimibe 10 MG Tablet PO (09:39)
[2020-11-13] MEDS: Enoxaparin 30 MG/0.3 ML Syringe SC ×2 (09:39→22:01)
[2020-11-13] MEDS: Pantoprazole Sodium 40 MG Tablet PO (09:39)
[2020-11-13] MEDS: Multivitamins,Therapeutic Tablet 1 TABLET PO (09:39)
[2020-11-13] MEDS: Cholecalciferol (VIT D3) 25 MCG TABLET (1,000 UNITS) PO (09:39)
[2020-11-13] MEDS: 0.9% Saline Lock 10 ML Syringe IV ×2 (09:41→22:04)
--- NOTE | 2020-11-13 14:40 | PN.ID_ITS ---
Physical Exam Narrative Feeling better, less sputum, no fever, no n/v/d. Const alert and no apparent distress General Appearance: cooperative Resp clear to auscultation bilaterally Auscultation: diminished lung sounds Cardio regular rate and regular rhythm GI normal to inspection, nondistended, normoactive bowel sounds Extremity no clubbing, cyanosis or edema Skin no rashes or lesions noted ID ID: Route of nutrition/ use of supplements: [] Nutritional Intake: [] IV Site: [] Krishna Catheter: [] Assessment & Plan Assessment/Plan (1) Pneumonia due to COVID-19 virus: PLAN: Sx started 11/02. Unvaccinated. On remdesivir and dex. Sputum with normal citlali, will stop ceftriaxone. On lovenox 30mg bid, CTA neg for PE. D- dimer mildly elevated. Recommend 10 days total dex. Quarantine 20 days from onset of symptoms. Recommended covid vaccine once he is out of iso. Ok for home from ID perspective depending on O2 reqs. Will follow as needed (2) Hypoxia:
[2020-11-13] MEDS: Atorvastatin Calcium 20 MG Tablet PO (22:01)
[2020-11-13] MEDS: MELATONIN 3 MG TABLET PO (22:43)
[2020-11-13] MEDS: Sodium Chloride 0.65% 1 SPRAY SPRAY.BTL 2 SPRAY NASAL (22:43)
[2020-11-14] VITALS (7 sets, daily range): BP systolic 123–129; BP diastolic 75–84; PULSE 67–82; RESP 18; TEMP 36.8; O2SAT 87–94
[2020-11-14 06:12] LABS: Hematocrit 42.5 % (40-54); Hemoglobin 14.3 g/dL (13.0-16.5); Mean Corp Hgb Conc 33.6 g/dL (32-36); Mean Corpuscular Hgb 29.8 pg (27.0-32.0); Mean Corpuscular Volume 88.5 fL (80-94); Mean Platelet Vol. 9.1 fl (6.2-12.0); Platelet Count 410 K/mm3 (150-450); RBC Distribution Width CV 12.9 % (11.6-14.6); RBC Distribution Width SD 42.1 fl (35.1-43.9); White Blood Count 11.3 K/mm3 (4.4-11.0)
[2020-11-14 06:48] LABS: ALB/GLOB Ratio 0.8 RATIO (0.9-2.4); AST(SGOT) 63 U/L (15-37); Alanine Aminotransfer ALT/SGPT 146 U/L (16-61); Albumin, Serum 2.8 g/dL (3.2-5.0); Alkaline Phosphatase 67 U/L (45-117); Anion Gap 3 (5-15); BUN 22 mg/dL (7-18); BUN/Creat Ratio 29.2 RATIO (10-20); Calcium,Total 8.8 mg/dL (8.5-10.1); Chloride 107 mmol/L (98-107); Creatinine, Serum 0.75 mg/dL (0.70-1.30); EST Glomerular Filtration Rate 116 mL/min (>60); Est Glom Filt Rate - Afr Amer 141 mL/min (>60); Globulin 3.6 g/dL (2.2-4.2); Glucose 141 mg/dL (74-106); Potassium 4.4 mmol/L (3.5-5.1); Protein, Total 6.4 g/dL (6.4-8.2); Sodium Level 138 mmol/L (136-145)
--- NOTE | 2020-11-14 07:30 | PCM.PN.HOSP ---
Subjective Subjective Patient seen oxygen requirement significantly down. Will assess patient for home oxygen. Objective Data Objective Data Vital Signs: Vital Signs Temp Pulse Resp BP Pulse Ox 98.2 F 67 18 129/84 H 93 11/14/20 02:21 11/14/20 02:21 11/14/20 02:21 11/14/20 02:21 11/14/20 02:21 Oxygen Flow Rate (L/min) 2 Oxygen Delivery Method Nasal Cannula Weight: 103.4 kg Body Mass Index (BMI) 34.7 Intake & Output: Intake and Output for Last 24 Hours 11/12/20 11/13/20 11/14/20 23:59 23:59 23:59 Intake Total 880 / 880 1160 / 1160 Balance 880 / 880 1160 / 1160 Medical Nutrition Assessment Dietitian: Nutrition Therapy Diagnosis Start: 11/11/20 10:00 Freq: Status: Active Protocol: Document 11/13/20 15:42 RMA (Rec: 11/13/20 15:42 RMA [id number]) Nutrition Malnutrition Evidence of Malnutrition Exists Yes Malnutrition (severe): Acute Illness/Injury Evidenced By Suboptimal Energy Intake ( Severe),Weight Loss (Severe) Clinical Problem Acute Disease or Injury Related Malnutrition Etiology Severe protein-calorie malnutrition in the context of acute illness (Covid pneumonia) related to decreased/inadequate oral intake Signs/Symptoms as evidenced by ~5% wt loss x past 1-2 weeks, poor oral intake and PO meeting less than 50% estimated nutrition needs x past 1-2 weeks. Status Active Problem Recommendation Dietitian Recommendations/Changes Will continue Regular diet and 120ml vanilla ensure enlive BID w/ breakfast and dinner and 240ml van ensure enlive w/ lunch (700 calories and 40gm protein). Cardiac diet as needed once intake is optimal. Additional ONS if PO regresses at meals. Lab / Micro Data Result Diagrams: 11/14/20 06:04 11/14/20 06:04 Labs: Laboratory Results - last 24 hr 11/14/20 06:04: WBC 11.3 H, RBC 4.80, Hgb 14.3, Hct 42.5, MCV 88.5, MCH 29.8, MCHC 33.6, RDW Std Deviation 42.1, RDW Coeff of Brenda 12.9, Plt Count 410, MPV 9.1 11/14/20 06:04: Sodium 138, Potassium 4.4, Chloride 107, Carbon Dioxide 28.0, Anion Gap 3 L, BUN 22 H, Creatinine 0.75, Estim Creat Clear Calc 114.00, Est GFR (MDRD) Af Amer 141, Est GFR (MDRD) Non-Af 116, BUN/Creatinine Ratio 29.2 H, Glucose 141 H, Calcium 8.8, Total Bilirubin 0.60, AST 63 H, ALT 146 H, Alkaline Phosphatase 67, Total Protein 6.4, Albumin 2.8 L, Globulin 3.6, Albumin/Globulin Ratio 0.8 L Micro: Microbiology 11/10/20 21:32 Sputum, Expectorated/Coughed Gram Stain - Final 11/10/20 21:32 Sputum, Expectorated/Coughed Respiratory Culture - Final 11/10/20 09:30 Blood Culture (Wb) - Right Wrist Blood Culture - Preliminary No growth in 48 hours. 11/10/20 09:30 Blood Culture (Wb) - Left Hand Blood Culture - Preliminary No growth in 48 hours. 11/10/20 15:50 Urine, Clean Catch Legionella Antigen - Final 11/10/20 15:50 Urine, Clean Catch Streptococcus pneumoniae Antigen (M - Final Physical Exam Narrative GENERAL: Cooperative HEENT: Atraumatic; EYES; Anicteric, Normal Conjunctiva NECK; supple, normal thyroid, RESPIRATORY: Diminished to auscultation CARDIOVASCULAR: Regular S1 S2, GI: soft, normoactive bowel sounds, : No Renal angle tenderness; EXTREMITIES: No edema, no clubbing, MUSCULOSKELETAL: no muscle waisting NEURO: Awake; no lateralizing signs. SKIN: No Rash PSYCH; Flat affect Assessment & Plan Assessment/Plan (1) Pneumonia due to COVID-19 virus: PLAN: Patient is a 50-year-old gentleman unvaccinated for COVID-19 presented to the emergency department with progressive shortness of breath. He had apparently been diagnosed with Covid 6 days prior to his admission. Imaging studies obtained on admission demonstrated Chronic bronchitis noted along with diffuse interstitial and airspaceopacifications in both lung mesa without effusions consistent with Covid. 1. Acute hypoxic respiratory failure ?Secondary to SARS-CoV-2 pneumonia. Imaging studies obtained on admission demonstrated Chronic bronchitis noted along with diffuse interstitial and airspace opacifications in both lung mesa without effusions consistent with Covid. Admitted to a monitored bed managed with incentive spirometry, supplemental oxygen, placed on Decadron remdesivir. Patient seen remains significantly dyspneic at rest on supplemental oxygen -11/12/2020; Patient seen still requiring high flow oxygen currently on 6 L and saturating in the low 90s. -11/13/2020. Patient still remains somewhat dyspneic at rest. Plan is to attempt to wean down his oxygen requirement. -11/14/2020 ; Patient seen oxygen requirement significantly down. Will assess patient for home oxygen in anticipation of a possible discharge 2. GERD ?Patient is on PPI 3. Gout ?Patient is on allopurinol 4. Dyslipidemia -Patient is on statin therapy, continued at home dose 5. Obesity with BMI of 34.7 ?Weight loss advised 6. DVT prophylaxis ?Enoxaparin
[2020-11-14] MEDS: Multivitamins,Therapeutic Tablet 1 TABLET PO (08:51)
[2020-11-14] MEDS: Pantoprazole Sodium 40 MG Tablet PO (08:51)
[2020-11-14] MEDS: dexAMETHasone 4 MG Tablet 6 MG PO (08:51)
[2020-11-14] MEDS: Enoxaparin 30 MG/0.3 ML Syringe SC (08:51)
[2020-11-14] MEDS: Cholecalciferol (VIT D3) 25 MCG TABLET (1,000 UNITS) PO (08:51)
[2020-11-14] MEDS: Ezetimibe 10 MG Tablet PO (08:51)
--- NOTE | 2020-11-14 10:59 | NURSING ---
pt sat up to edge of bed and on 2l at rest sating 93%. o2 off and up in room to ambulate. spo2 on ra dropped to 87%. o2 reapplied at 2l and unable to get above 88% when up walking continuous. o2 increased to 4l and still spo2 remains same. no sign of distress noted with exertion however. o2 on 6l and finally pt hovering in 89-90%. back to bed and within 5min of rest able to turn o2 back to baseline of 2l/nc now.
--- NOTE | 2020-11-14 11:24 | DS.PCM_ITS ---
Providers Date of Admission: 11/10/20 Primary Care Physician: No Primary Care Phys Consultations 11/10/20 14:17 Consult: Infectious Disease Routine Consulting Provider: Franko España Reason for Consult: Covid-19 PNEUMONIA EMERGENT Consult: No MD Notified: Yes Date Notified: 11/11/20 Time Notified: 06:40 Method of Notification: Text Reason For Visit: COVID PNEUMONIA Diagnosis Discharge Diagnosis (1) Pneumonia due to COVID-19 virus: Status: Acute Code(s): U07.1 - COVID-19; J12.82 - Pneumonia due to coronavirus disease 2019 Medications at Discharge Home Medications ezetimibe [Zetia] 10 mg PO DAILY 04/11/14 omeprazole 40 mg PO DAILY 04/11/14 atorvastatin 20 mg PO QHS 03/26/19 cholecalciferol (vitamin D3) 1,000 unit PO DAILY 03/26/19 allopurinol [Zyloprim] 100 mg PO DAILY 11/10/20 multivitamin 1 tab PO DAILY 11/10/20 codeine-guaifenesin [Guaiatussin AC] 10 ml PO Q6H PRN PRN 7 Days #473 ml 11/14/20 dexamethasone 6 mg PO DAILY 5 Days #8 tab 11/14/20 hydrocortisone acetate [Anucort-HC] 25 mg [place] TID PRN PRN #30 ea 11/14/20 sodium chloride [Deep Sea Nasal] 2 spray NASAL TID PRN PRN 7 Days #60 ml 11/14/20 Hospital Course Summary of Care Provided Minutes Spent on Discharge: 35 Hospital Course: Patient is a 50-year-old gentleman unvaccinated for COVID-19 presented to the emergency department with progressive shortness of breath. He had apparently been diagnosed with Covid 6 days prior to his admission. Imaging studies obtained on admission demonstrated Chronic bronchitis noted along with diffuse interstitial and airspace opacifications in both lung mesa without effusions consistent with Covid. 1. Acute hypoxic respiratory failure ?Secondary to SARS-CoV-2 pneumonia. Imaging studies obtained on admission demonstrated Chronic bronchitis noted along with diffuse interstitial and airspace opacifications in both lung mesa without effusions consistent with Covid. Admitted to a monitored bed managed with incentive spirometry, supplemental oxygen, placed on Decadron remdesivir. Patient seen remains significantly dyspneic at rest on supplemental oxygen -11/12/2020; Patient seen still requiring high flow oxygen currently on 6 L and saturating in the low 90s. -11/13/2020. Patient still remains somewhat dyspneic at rest. Plan is to attempt to wean down his oxygen requirement. -11/14/2020 ; Patient seen oxygen requirement significantly down. Patient was assessed for home oxygen prior to patient going home. Patient was given specific instructions on what to look out for and when to return to the hospital. He was instructed to current time for a total of 20 days beginning from the onset of his symptoms. Patient to follow-up with his primary care physician following his current time.. He was also instructed to arrange with PCP to be vaccinated against Covid 2. GERD ?Patient is on PPI 3. Gout ?Patient is on allopurinol 4. Dyslipidemia -Patient is on statin therapy, continued at home dose 5. Obesity with BMI of 34.7 ?Weight loss advised 6. DVT prophylaxis ?Enoxaparin Physical Exam Narrative GENERAL: Cooperative HEENT: Atraumatic; EYES; Anicteric, Normal Conjunctiva NECK; supple, normal thyroid, RESPIRATORY: Diminished to auscultation CARDIOVASCULAR: Regular S1 S2, GI: soft, normoactive bowel sounds, : No Renal angle tenderness; EXTREMITIES: No edema, no clubbing, MUSCULOSKELETAL: no muscle waisting NEURO: Awake; no lateralizing signs. SKIN: No Rash PSYCH; Flat affect Medical Records Data Medical Nutrition Assessment Dietitian: Nutrition Therapy Diagnosis Start: 11/11/20 10:00 Freq: Status: Active Protocol: Document 11/13/20 15:42 RMA (Rec: 11/13/20 15:42 RMA [id number]) Nutrition Malnutrition Evidence of Malnutrition Exists Yes Malnutrition (severe): Acute Illness/Injury Evidenced By Suboptimal Energy Intake ( Severe),Weight Loss (Severe) Clinical Problem Acute Disease or Injury Related Malnutrition Etiology Severe protein-calorie malnutrition in the context of acute illness (Covid pneumonia) related to decreased/inadequate oral intake Signs/Symptoms as evidenced by ~5% wt loss x past 1-2 weeks, poor oral intake and PO meeting less than 50% estimated nutrition needs x past 1-2 weeks. Status Active Problem Recommendation Dietitian Recommendations/Changes Will continue Regular diet and 120ml vanilla ensure enlive BID w/ breakfast and dinner and 240ml van ensure enlive w/ lunch (700 calories and 40gm protein). Cardiac diet as needed once intake is optimal. Additional ONS if PO regresses at meals. Weight / BMI Weight Weight: 103.4 kg Body Mass Index (BMI) 34.7 ABG / Lab / Microbiology Data Result Diagrams: 11/14/20 06:04 11/14/20 06:04 Laboratory: Laboratory Results - last 24 hr 11/14/20 06:04: WBC 11.3 H, RBC 4.80, Hgb 14.3, Hct 42.5, MCV 88.5, MCH 29.8, MCHC 33.6, RDW Std Deviation 42.1, RDW Coeff of Brenda 12.9, Plt Count 410, MPV 9.1 11/14/20 06:04: Sodium 138, Potassium 4.4, Chloride 107, Carbon Dioxide 28.0, Anion Gap 3 L, BUN 22 H, Creatinine 0.75, Estim Creat Clear Calc 114.00, Est GFR (MDRD) Af Amer 141, Est GFR (MDRD) Non-Af 116, BUN/Creatinine Ratio 29.2 H, Glucose 141 H, Calcium 8.8, Total Bilirubin 0.60, AST 63 H, ALT 146 H, Alkaline Phosphatase 67, Total Protein 6.4, Albumin 2.8 L, Globulin 3.6, Albumin/Globulin Ratio 0.8 L Microbiology: Microbiology 11/10/20 21:32 Sputum, Expectorated/Coughed Gram Stain - Final 11/10/20 21:32 Sputum, Expectorated/Coughed Respiratory Culture - Final 11/10/20 09:30 Blood Culture (Wb) - Right Wrist Blood Culture - Preliminary No growth in 48 hours. 11/10/20 09:30 Blood Culture (Wb) - Left Hand Blood Culture - Preliminary No growth in 48 hours. 11/10/20 15:50 Urine, Clean Catch Legionella Antigen - Final 11/10/20 15:50 Urine, Clean Catch Streptococcus pneumoniae Antigen (M - Final D/C Instructions Discharge Diet: No restrictions Discharge Activity: Return to Normal Activity Call your doctor if you observe: Fever of 101 or Higher, Shortness of breath, Fainting spells and Chest pain Meaningful Use Info Meaningful Use Diagnoses (Choose all that apply): None applicable Discharge Plan Admission Admit Date/Time: 11/10/20 14:15 Primary Reason for Your Visit: SARS-CoV-2 pneumonia Attending Provider: Nikko Saxena Primary Care Provider: Care Physician,No Primary Consulting Providers: Franko España Discharge Orders/Prescriptions Prescriptions: New dexamethasone 4 mg Tablet 6 mg PO DAILY 5 Days Qty: 8 RF: 0 codeine-guaifenesin [Guaiatussin AC] 10-100 mg/5 mL Liquid 10 ml PO Q6H PRN PRN (Reason: COUGH) 7 Days Qty: 473 RF: 0 hydrocortisone acetate [Anucort-HC] 25 mg Suppository 25 mg [place] TID PRN PRN (Reason: HEMORRHOIDS) Qty: 30 RF: 0 sodium chloride [Deep Sea Nasal] 0.65 % Aerosol,[place] 2 spray NASAL TID PRN PRN (Reason: NASAL DRYNESS) 7 Days Qty: 60 RF: 0 Continued omeprazole 40 MG capsule,delayed release(DR/EC) 40 mg PO DAILY RF: 0 ezetimibe [Zetia] 10 MG tablet 10 mg PO DAILY RF: 0 atorvastatin 20 MG tablet 20 mg PO QHS RF: 0 cholecalciferol (vitamin D3) 1,000 UNIT tablet 1,000 unit PO DAILY RF: 0 multivitamin Tablet 1 tab PO DAILY RF: 0 allopurinol [Zyloprim] 100 mg tablet 100 mg PO DAILY RF: 0 Referrals / Follow Up: Care Physician,No Primary [Primary Care Provider] - In 1 Week Disposition Disposition (needs filled in before D/C Order can be placed): Home, Self Care Charges/Coding Visit Charges Inpatient E&M: 44951 Disch Hosp
--- NOTE | 2020-11-14 11:49 | PCM.DC ---
Discharge Instructions Diet Discharge Diet: No restrictions Dressing / Incision Call your doctor if you observe: Fever of 101 or Higher, Shortness of breath, Fainting spells and Chest pain Follow Up Care Test Results: Test results from this visit will be discussed in further detail at your follow-up appointment, if applicable. Discharge Plan Admission Admit Date/Time: 11/10/20 14:15 Primary Reason for Your Visit: SARS-CoV-2 pneumonia Attending Provider: Nikko Saxena Primary Care Provider: Muna Meek,Shefali Primary Consulting Providers: Franko España Discharge Orders/Prescriptions Prescriptions: New dexamethasone 4 mg Tablet 6 mg PO DAILY 5 Days Qty: 8 RF: 0 codeine-guaifenesin [Guaiatussin AC] 10-100 mg/5 mL Liquid 10 ml PO Q6H PRN PRN (Reason: COUGH) 7 Days Qty: 473 RF: 0 hydrocortisone acetate [Anucort-HC] 25 mg Suppository 25 mg [place] TID PRN PRN (Reason: HEMORRHOIDS) Qty: 30 RF: 0 sodium chloride [Deep Sea Nasal] 0.65 % Aerosol,[place] 2 spray NASAL TID PRN PRN (Reason: NASAL DRYNESS) 7 Days Qty: 60 RF: 0 Continued omeprazole 40 MG capsule,delayed release(DR/EC) 40 mg PO DAILY RF: 0 ezetimibe [Zetia] 10 MG tablet 10 mg PO DAILY RF: 0 atorvastatin 20 MG tablet 20 mg PO QHS RF: 0 cholecalciferol (vitamin D3) 1,000 UNIT tablet 1,000 unit PO DAILY RF: 0 multivitamin Tablet 1 tab PO DAILY RF: 0 allopurinol [Zyloprim] 100 mg tablet 100 mg PO DAILY RF: 0 Referrals / Follow Up: Care Physician,Shefali Primary [Primary Care Provider] - In 1 Week Disposition Disposition (needs filled in before D/C Order can be placed): Home, Self Care
--- NOTE | 2020-11-14 13:00 | CASEMGMT ---
Per Dejah LOPEZ, pt qualifies for 2L at rest and 6L nc with ambulation. Pt had stated no preference for DME company and referral faxed to [facility]. Pt states no further questions/concerns/needs. Juan Miguel LOPEZ CM
--- NOTE | 2020-11-15 16:32 | CASEMGMT ---
JESSICA RAMOS Discharge Follow-Up Phone Call. Discharge Date: 11/14/20 Adm Dx: COVID Call to pt to inquire about how he has been doing since being discharged from the hospital. Pt states I'm doing okay. My breathing is better. He states he did get the oxygen @ home and has been monitoring his pulse ox, which has been staying mostly b/w 92-94% w/the O2 in place. He states he has been using the IS and asked questions about frequency and use. JESSICA RAMOS gave instructions/teaching re: same. He states he is going to be starting to see Dr Herring as his PCP. He states he has a virtual appt w/Jaida Kirkland NP, on Wednesday and an appt w/Manasa, December 02. He states he was able to get the new prescriptions @ [facility] w/out any problems and denies having any questions about the discharge instructions. Pt thanked JESSICA RAMOS for calling. Dimitry LUNDY RN, CM
== END 2020-11-14 14:50 | disposition home or self-care (01) | DRG 177 ==
LOC: ED 12:04 → PCU 11-11 02:35
PROVIDERS: Internal Medicine Infectious Disease; Admitting Provider Internal Medicine; Emergency Provider Emergency Medicine; Visit Provider Internal Medicine
DX: U07.1 COVID-19 (principal); J12.82 Pneumonia due to coronavirus disease 2019; J96.01 Acute respiratory failure with hypoxia; K21.9 Gastro-esophageal reflux disease without esophagitis; M10.9 Gout, unspecified; E78.5 Hyperlipidemia, unspecified; E66.9 Obesity, unspecified; Z68.36 Body mass index [BMI] 36.0-36.9, adult; Z79.899 Other long term (current) drug therapy; Z87.891 Personal history of nicotine dependence
CPT/HCPCS: 36415; 71045; 71275; 80053; 82550; 83605; 83615; 83735; 83880; 84145; 84484; 85025; 85027; 85379; 85384; 85610; 86140; 87040; 87070; 87205; 87449; 93005; 97802; 97803; 99285; J7040; J7050; Q9967; A4216; J0696

== ENCOUNTER → 2021-12-12 | Outpatient (CLI) | payer BC, SELFPAY | END | disposition home or self-care (01) | LOC: SL 08:48 | PROVIDERS: Visit Provider Family Medicine | DX: Z00.00 Encounter for general adult medical examination without abnormal findings (principal) ==

== ENCOUNTER → 2022-02-25 | Outpatient (CLI) | payer BC, SELFPAY | END | disposition home or self-care (01) | LOC: SL 07:32 | PROVIDERS: PCP Family Medicine; Referring Provider Family Medicine; Visit Provider Family Medicine | DX: G47.33 Obstructive sleep apnea (adult) (pediatric) (principal); Z99.89 Dependence on other enabling machines and devices | CPT/HCPCS: 95811 ==

== ENCOUNTER 2024-02-22 17:34 | Emergency (ER) | payer BC, SELFPAY ==
[2024-02-22 17:35] VITALS: BP 158/84; PULSE 102; RESP 16; TEMP 37.5; O2SAT 100; BMI 32.3
[2024-02-22 21:49] VITALS: BP 135/98; PULSE 88; RESP 18; TEMP 37.2; O2SAT 97
--- NOTE | 2024-02-22 22:20 | EX.ED.DYSGE1 ---
HPI History of Present Illness Chief Complaint: Cold Sx Informant: patient Narrative Narrative: Patient presents for concern of COVID. Patient states he started having a sore throat last night that progressed today. He has not had feeling of hot and cold and bodyaches. Notes he is having some nasal congestion now. Denies any associated nausea or vomiting. Denies any difficulty breathing. Is not reporting any cough. Took a home COVID test today was positive. Has been hospitalized for COVID in the past and came in for further evaluation. Has not had any medications prior to arrival. [facility] Medical History Arthritis High cholesterol GERD (gastroesophageal reflux disease) Former smoker Hypertension Home Medications ?Medication ?Instructions ?Recorded ?Last Taken ?Type ezetimibe 10 mg tablet (Zetia) 10 mg PO DAILY cholesterol 04/11/14 11/09/20 History omeprazole 40 mg capsule,delayed 40 mg PO DAILY GERD 04/11/14 11/09/20 History release atorvastatin 20 mg tablet 20 mg PO QHS cholesterol 03/26/19 11/09/20 History cholecalciferol (vitamin D3) 25 1,000 unit PO DAILY vitamin 03/26/19 11/09/20 History mcg (1,000 unit) tablet allopurinol 100 mg tablet 100 mg PO DAILY gout 11/10/20 11/09/20 History (Zyloprim) multivitamin 1 tab PO DAILY vitamin 11/10/20 11/09/20 History codeine 10 mg-guaifenesin 100 mg/5 10 ml PO Q6H PRN PRN COUGH 7 days 11/14/20 Unknown Rx mL oral liquid (Guaiatussin AC) #473 mL dexamethasone 4 mg tablet 6 mg (1.5 x 4 mg) PO DAILY 5 days 11/14/20 Unknown Rx #8 tabs hydrocortisone acetate 25 mg 25 mg [place] TID PRN PRN HEMORRHOIDS 11/14/20 Unknown Rx rectal suppository (Anucort-HC) #30 ea sodium chloride 0.65 % nasal spray 2 spray NASAL TID PRN PRN NASAL 11/14/20 Unknown Rx aerosol (Deep Sea Nasal) DRYNESS 7 days #60 mL nirmatrelvir 300 mg (150 mg See Rx Instructions PO .COMPLEX 02/22/24 Unknown Rx x2)-ritonavir 100 mg tablet,dose #30 tabs pack (Paxlovid) Allergy/AdvReac Type Severity Reaction Status Date / Time No Known Allergies Allergy Verified 11/10/20 08:39 Surgical History Hx of arthroscopic knee surgery Social History Smoking Status: Former smoker ROS ROS ED Constitutional Constitutional ED: Reports chills, fever(s) and subjective ENT ENT ED: Reports sore throat and other Details: Nasal congestion ; Denies ear pain Cardiovascular Cardiovascular: Denies chest pain Respiratory/Chest Respiratory/Chest: Denies cough or dyspnea Gastrointestinal Gastrointestinal: Denies abdominal pain, nausea or vomiting Musculoskeletal Musculoskeletal: Reports myalgias; Denies arthralgias Integumentary Denies rash Neurologic Neurologic: Denies paresthesias or weakness EXAM Physical Exam Const Vital Signs: 02/22/24 17:35 02/22/24 21:49 02/22/24 21:50 Temperature 99.5 F H 99 F Temperature Source Oral Oral Pulse Rate 102 H 88 Respiratory Rate 16 18 Respiratory Effort Normal Non-Labored Respiratory Depth Respiratory Pattern Normal Blood Pressure 158/84 H 135/98 H Blood Pressure Mean 108 110 Pulse Ox 100 97 Oxygen Delivery Method Room Air Room Air 02/22/24 21:51 Temperature Temperature Source Pulse Rate Respiratory Rate Respiratory Effort Normal Non-Labored Respiratory Depth Normal Respiratory Pattern Normal Blood Pressure Blood Pressure Mean Pulse Ox Oxygen Delivery Method Room Air Positive well nourished and well developed General Appearance ED: well developed HEENT Reports TM's clear and moist mucous membranes HEENT Narrative: Normal oropharynx Tympanic Membrane ED: Yes TM's clear Eyes PERRL Neck no lymphadenopathy and supple Chest Wall inspection of chest normal and palpation of chest normal Resp normal respiratory effort and clear to auscultation bilaterally Auscultation: Negative for wheezes or diminished lung sounds Cardio regular rate and regular rhythm GI normal to inspection, nondistended, normoactive bowel sounds and non-tender Extremity normal to inspection Neuro oriented x3 Sensorium / Orientation: alert Motor Exam: Negative for general weakness Psych mental status grossly normal Skin no rashes or lesions noted and no wounds MDM MDM MDM Narrative Medical decision making narrative: Patient's evaluated for flulike symptoms and positive home COVID test today. Upon arrival patient is low-grade temperature 99.5 and was mildly tachycardic at 102. He is 100% on room air and on recheck 97% room air. Patient overall is quite well-appearing. Given his presentation, I suspect patient does not fact have COVID-19. Is interested in taking Paxlovid. Will be given a prescription for this. I will be counseled to hold his atorvastatin while taking Paxlovid and until 3 days afterwards to resume it. Patient counseled that if he has worsening dizziness or nausea with Paxlovid he can stop it. Is given return precautions. Counseled take [id number] cold and flu medicine as needed for symptom control. Patient verbalized agreement understand this plan. Discharged home in stable condition. Discharge Plan Triage Chief Complaint: Cold Sx ED Provider: Ana Zendejas Dx/Rx/DC Orders Clinical Impression: COVID-19 Instructions: Coronavirus Disease 2019 (COVID-19): Caring for Yourself or Others Prescriptions: New Paxlovid 300 mg (150 mg x 2)-100 mg tablets,dose pack See Rx Instructions .ROUTE .COMPLEX Qty: 30 0RF Rx Instructions: take TWO 150 mg tablets of nirmatrelvir with ONE 100 mg tablet of ritonavir twice daily for 5 days No Action omeprazole 40 MG capsule,delayed release(DR/EC) 40 mg PO DAILY Patient Comments: ezetimibe [Zetia] 10 MG tablet 10 mg PO DAILY Patient Comments: atorvastatin 20 MG tablet 20 mg PO QHS cholecalciferol (vitamin D3) 1,000 UNIT tablet 1,000 unit PO DAILY multivitamin Tablet 1 tab PO DAILY allopurinol [Zyloprim] 100 mg tablet 100 mg PO DAILY Patient Comments: TAKE 1 TABLET BY MOUTH EVERY DAY dexamethasone 4 mg Tablet 6 mg PO DAILY 5 Days Qty: 8 0RF codeine-guaifenesin [Guaiatussin AC] 10-100 mg/5 mL Liquid 10 ml PO Q6H PRN PRN (Reason: COUGH) 7 Days Qty: 473 0RF hydrocortisone acetate [Anucort-HC] 25 mg Suppository 25 mg [place] TID PRN PRN (Reason: HEMORRHOIDS) Qty: 30 0RF sodium chloride [Deep Sea Nasal] 0.65 % Aerosol,[place] 2 spray NASAL TID PRN PRN (Reason: NASAL DRYNESS) 7 Days Qty: 60 0RF Stand Alone Forms: ED Work / School Excuse Primary Care Provider: Michael Herring Referrals: Michael Herring MD [Primary Care Provider] - Activity Restrictions/Additional Instructions: Alternate Profen and Tylenol as for fevers and aches and pains. He may take [id number] cold and flu medicine as needed. I do recommend the brand Coricidin HBP which is cold medicine for people with high blood pressure. Please hold your atorvastatin while taking of the COVID medication (Paxlovid) and resume it 3 days after you stop taking this medicine. You may continue your other medicines. If you have difficulty breathing or progression/worsening of your symptoms please return to the emergency room. Make sure you are drinking plenty of fluids prevent dehydration. Print Language: Gabonese Disposition Disposition: Home, Self Care
[2024-02-22] MEDS: Acetaminophen 325 MG Tablet 650 MG PO (22:26)
[2024-02-22 22:29] VITALS: BP 135/80; PULSE 92; RESP 18; TEMP 37.4; O2SAT 99
== END 2024-02-22 22:31 | disposition home or self-care (01) ==
PROVIDERS: Emergency Provider Emergency Medicine; PCP Family Medicine; Visit Provider Emergency Medicine
DX: U07.1 COVID-19 (principal); E78.00 Pure hypercholesterolemia, unspecified; Z87.891 Personal history of nicotine dependence; K21.9 Gastro-esophageal reflux disease without esophagitis; I10 Essential (primary) hypertension
CPT/HCPCS: 99283